=== PATIENT | male | born 1970 ===

== ENCOUNTER 2016-08-13 11:17 | Emergency (ER) | payer OTHER ==
[2016-08-13 11:23] VITALS: BP 141/90; PULSE 76; TEMP 97; O2SAT 98; BMI 33.0
--- NOTE | 2016-08-13 11:43 | ED PDOC ---
HPI: Male Pain Time Seen by Provider: 08/13/16 11:35 Additional Complaint(s): Patient is complaining of a 2 week history of L scrotal pain that is worse when he walks. He reports normal bowel and bladder habits. He denies dysuria. He denies scrotal swelling. He denies penile discharge. He denies abdominal pain or radiation of the pain. Past Medical History Vital Signs: Last Vital Signs Temp 97 F L 08/13/16 11:23 Pulse 76 08/13/16 11:23 Resp BP 141/90 08/13/16 11:23 Pulse Ox 98 08/13/16 11:23 - Medical History PMH: Asthma, Bronchitis, Fractures (broken left finger), HTN - Family History Family History: States: Unknown Family Hx - Immunization History Hx Tetanus Toxoid Vaccination: No Hx Influenza Vaccination: Yes Hx Pneumococcal Vaccination: No - Home Medications Home Medications: Ambulatory Orders Medication Instructions Recorded Montelukast [Singulair] 10 mg PO DAILY 12/03/15 Losartan [Cozaar] 50 mg PO DAILY 02/14/16 Cholecalciferol [Vitamin D 1000 IU] 1,000 iu PO DAILY #30 tab 04/18/16 Lovastatin 10 mg PO DAILY 05/12/16 Clotrimazole 1% Cream [Lotrimin 1%] 1 mg TP TID #1 tube 07/23/16 Losartan [Cozaar] 1 tab PO DAILY #30 tab 07/23/16 Lovastatin 10 mg PO DAILY #30 tab 07/23/16 Montelukast Sodium [Singulair] 10 mg PO DAILY #30 tablet 07/23/16 - Allergies Allergies/Adverse Reactions: Allergies Allergy/AdvReac Type Severity Reaction Status Date / Time almond Allergy SWELLING Verified 07/23/16 11:22 aspirin AdvReac Severe Verified 07/23/16 11:22 ibuprofen AdvReac Severe Verified 07/23/16 11:22 seafood Allergy SWELLING Uncoded 04/18/16 20:51 Review of Systems Constitutional: Negative for: Fever, Chills Cardiovascular: Negative for: Chest Pain, Palpitations Respiratory: Negative for: Cough, Shortness of Breath, SOB with Exertion Gastrointestinal: Negative for: Nausea, Vomiting, Abdominal Pain, Diarrhea, Constipation Genitourinary Male: Positive for: Scrotal Pain. Negative for: Dysuria, Penile Discharge, Rash Musculoskeletal: Negative for: Neck Pain, Shoulder Pain, Back Pain Physical Exam - Physical Exam Gastrointestinal/Abdominal: Positive for: Soft. Negative for: Tenderness, Mass , Distended Male Genital Exam: Positive for: other (non circumsized penis with no discharge , no scrotal tenderness, no hernia palpated. (chaperoned by odilon redd)). Negative for: hernia mass, inguinal tenderness, scrotum tenderness (R), scrotum tenderness (L) Back: Positive for: Normal Inspection. Negative for: L CVA Tenderness, R CVA Tenderness - ECG O2 Sat by Pulse Oximetry: 98 Medical Decision Making Medical Decision Making: Vilmatent is complaining of scrotal pain. Uti vs hernia vs torsion vs epididmytitis 1:37PM UA shows hematuria but is otherwise normal. Gonorrhea/chlamydia received by lab. P: us Will sign out Mishel Avtar to follow-up ultrasound. Disposition - Clinical Impression Clinical Impression: Hematuria, Testicular/scrotal pain - Disposition Disposition Time: 15:00 Condition: FAIR
[2016-08-13 12:39] LABS: RBC URINE 1 /hpf (0-3); URINE BACTERIA RARE (<OCC); URINE BILIRUBIN NEGATIVE (NEGATIVE); URINE BLOOD NEGATIVE (NEGATIVE); URINE COLOR YELLOW (YELLOW); URINE GLUCOSE (UA) NEG (Normal); URINE KETONE NEGATIVE (NEGATIVE); URINE LEUKOCYTE ESTERASE NEG Leu/uL (Negative); URINE PROTEIN NEGATIVE (NEGATIVE); URINE UROBILINOGEN 0.2-1.0 mg/dL (0.2-1.0); WBC URINE 1 /hpf (0-5)
--- NOTE | 2016-08-13 14:55 | US ---
HISTORY: L testicular pain TECHNIQUE: Realtime sonography through the scrotum with color and doppler flow. COMPARISON: None Available. FINDINGS: RIGHT TESTICLE: Measures 5 x 2.9 x 2.1 cm. Normal echotexture and flow. RIGHT EPIDIDYMIS: Epididymal head measures 0.9 x 0.8 x 0.6 cm. Grossly unremarkable appearance with normal flow. LEFT TESTICLE: Measures 5 x 3 x 1.9 cm. Normal echotexture and flow. LEFT EPIDIDYMIS: Epididymal head measures 0.9 x 0.8 x 0.6 cm. Grossly unremarkable appearance with normal flow. HYDROCELE: Small size left-sided hydrocele is noted. VARICOCELE: None. OTHER FINDINGS: None. IMPRESSION: Small size left-sided hydrocele. No evidence of testicular torsion.
--- NOTE | 2016-08-13 15:04 | ED PDOC ---
- ECG O2 Sat by Pulse Oximetry: 98 Medical Decision Making Medical Decision Making: Time: 1500 Patient signed out by Dr. Hightower pending ultrasound Time: 1515 U/S report reviewed HISTORY: L testicular pain TECHNIQUE: Realtime sonography through the scrotum with color and doppler flow. COMPARISON: None Available. FINDINGS: RIGHT TESTICLE: Measures 5 x 2.9 x 2.1 cm. Normal echotexture and flow. RIGHT EPIDIDYMIS: Epididymal head measures 0.9 x 0.8 x 0.6 cm. Grossly unremarkable appearance with normal flow. LEFT TESTICLE: Measures 5 x 3 x 1.9 cm. Normal echotexture and flow. LEFT EPIDIDYMIS: Epididymal head measures 0.9 x 0.8 x 0.6 cm. Grossly unremarkable appearance with normal flow. HYDROCELE: Small size left-sided hydrocele is noted. VARICOCELE: None. OTHER FINDINGS: None. IMPRESSION: Small size left-sided hydrocele. No evidence of testicular torsion. Scribe Attestation: Documented by Nevin aCrson acting as a scribe for Mishel Fraire MD MD Scribe Attestation: All medical record entries made by the Scribe were at my direction and personally dictated by me. I have reviewed the chart and agree that the record accurately reflects my personal performance of the history, physical exam, medical decision making, and the department course for this patient. I have also personally directed, reviewed, and agree with the discharge instructions and disposition. Disposition Counseled Patient/Family Regarding: Studies Performed, Diagnosis, Need For Followup - Clinical Impression Clinical Impression: Hematuria, Testicular/scrotal pain - POA Present On Arrival: None - Disposition Referrals: Galen Daniel Jr., MD [Staff Provider] - (CALL OFFICE TO SCHEDULE FOLLOW UP APPOINTMENT) [facility] [Outside] [facility] [Outside] Disposition: Routine/Home Disposition Time: 15:31 Condition: GOOD Instructions: Hydrocele (ED) Print Language: BELIZEAN
== END 2016-08-13 15:40 | disposition home or self-care (01) ==
LOC: H.ER 11:17
DX: N50.82 Scrotal pain (principal); N43.3 Hydrocele, unspecified; R31.9 Hematuria, unspecified; I10 Essential (primary) hypertension; J45.909 Unspecified asthma, uncomplicated

== ENCOUNTER 2016-09-06 12:37 | Emergency (ER) | payer OTHER ==
[2016-09-06 12:37] VITALS: BMI 33.0
[2016-09-06 12:46] VITALS: RESP 18
[2016-09-06 12:58] VITALS: O2SAT 96
[2016-09-06] MEDS ORDERED: Albuterol-Ipratrop 3 mg / 0.5 (3 ml) UD INH STA ×2 (13:19→13:22)
[2016-09-06] MEDS ORDERED: Albuterol-Ipratrop 3 mg / 0.5 (3 ml) UD ONE (13:22)
--- NOTE | 2016-09-06 13:39 | ED PDOC ---
HPI: SOB/CHF/COPD Time Seen by Provider: 09/06/16 12:51 Chief Complaint (Nursing): Respiratory Distress Chief Complaint (Provider): cough History Per: Patient History/Exam Limitations: no limitations Onset/Duration Of Symptoms: Hrs Current Symptoms Are (Timing): Still Present Current Respiratory Medications: Albuterol, Other (singular) Severity: Mild Additional Complaint(s): Patient is a 46 year old male presenting to the ED complaining of cough since this morning. Cough is associated with congestion, wheezing, and difficulty breathing. Patient used a nebulizer treatment this morning with partial relief. Patient denies fever or chest pain. PMD: [facility] Past Medical History Reviewed: Historical Data, Nursing Documentation, Vital Signs Vital Signs: Last Vital Signs Temp 98.2 F 09/06/16 12:44 Pulse 99 H 09/06/16 14:20 Resp 18 09/06/16 12:51 BP 135/89 09/06/16 12:44 Pulse Ox 96 09/06/16 14:20 - Medical History PMH: Asthma, Bronchitis, Fractures (broken left finger), HTN, Hyperlipidemia - Family History Family History: States: No Known Family Hx - Immunization History Hx Tetanus Toxoid Vaccination: No Hx Influenza Vaccination: Yes Hx Pneumococcal Vaccination: No - Home Medications Home Medications: Ambulatory Orders Medication Instructions Recorded Montelukast [Singulair] 10 mg PO DAILY 12/03/15 Losartan [Cozaar] 50 mg PO DAILY 02/14/16 Cholecalciferol [Vitamin D 1000 IU] 1,000 iu PO DAILY #30 tab 04/18/16 Lovastatin 10 mg PO DAILY 05/12/16 Clotrimazole 1% Cream [Lotrimin 1%] 1 mg TP TID #1 tube 07/23/16 Losartan [Cozaar] 1 tab PO DAILY #30 tab 07/23/16 Lovastatin 10 mg PO DAILY #30 tab 07/23/16 Montelukast Sodium [Singulair] 10 mg PO DAILY #30 tablet 07/23/16 Albuterol HFA [Ventolin HFA 90 2 puff IH [id number] #1 inh 09/06/16 mcg/actuation (8 g)] Fluticasone/Salmeterol [Advair 1 each IH BID #1 blst.w.dev 09/06/16 250-50 Diskus] predniSONE [predniSONE Tab] 60 mg PO DAILY 4 Days 09/06/16 - Allergies Allergies/Adverse Reactions: Allergies Allergy/AdvReac Type Severity Reaction Status Date / Time almond Allergy SWELLING Verified 09/06/16 12:44 aspirin AdvReac Severe RASH Verified 09/06/16 12:44 ibuprofen AdvReac Severe RASH Verified 09/06/16 12:44 seafood Allergy SWELLING Uncoded 04/18/16 20:51 Review of Systems ROS Statement: Except As Marked, All Systems Reviewed And Found Negative Constitutional: Negative for: Fever ENT: Positive for: Nose Congestion Cardiovascular: Negative for: Chest Pain Respiratory: Positive for: Cough, Wheezing Physical Exam - Reviewed Nursing Documentation Reviewed: Yes Vital Signs Reviewed: Yes - Physical Exam Appears: Positive for: Well, Non-toxic, No Acute Distress Head Exam: Positive for: ATRAUMATIC, NORMAL INSPECTION, NORMOCEPHALIC Skin: Positive for: Normal Color, Warm, DRY Eye Exam: Positive for: EOMI, Normal appearance, PERRL Neck: Positive for: Normal, Painless ROM Cardiovascular/Chest: Positive for: Regular Rate, Rhythm. Negative for: Gallop , Murmur Respiratory: Positive for: Wheezing (diffuse bilaterally). Negative for: Respiratory Distress Extremity: Positive for: Normal ROM Neurologic/Psych: Positive for: Alert, Oriented - ECG ECG: Positive for: Interpreted By Me, Viewed By Me ECG Rhythm: Positive for: Normal QRS, Normal ST Segment, Sinus Rhythm. Negative for: ST/T Changes Rate: 99 O2 Sat by Pulse Oximetry: 96 (RA) Pulse Ox Interpretation: Normal Nebulizer Treatments/Peak Flow - Duonebs Number of Bronchodilator Doses given?: 2 - Steroid Treatment Steroid: Oral - Clinical Response Clinical Response: Improved Medical Decision Making Medical Decision Making: Time: 12:55 Impression: asthma exacerbation Plan: EKG Albuterol 3 ml INH Prednisone 60 mg PO Peak flow pre/post Tx Scribe Attestation Documented by Satish Beatty acting as a scribe for Alec Jaramillo MD Provider Attestation: All medical record entries made by the Scribe were at my direction and personally dictated by me. I have reviewed the chart and agree that the record accurately reflects my personal performance of the history, physical exam, medical decision making, and the department course for this patient. I have also personally directed, reviewed, and agree with the discharge instructions and disposition. Disposition - Clinical Impression Clinical Impression: Asthma exacerbation - Patient ED Disposition Is Patient to be Admitted: No Doctor Will See Patient In The: Office Counseled Patient/Family Regarding: Studies Performed, Diagnosis, Need For Followup - Disposition Referrals: [facility] [Outside] Disposition: Routine/Home Disposition Time: 16:00 Condition: GOOD Additional Instructions: Take medications as instructed. Return for worsening. Follow up with your PCP in 2-3 days. Prescriptions: Albuterol HFA [Ventolin HFA 90 mcg/actuation (8 g)] 2 puff IH [id number] #1 inh Fluticasone/Salmeterol [Advair 250-50 Diskus] 1 each IH BID #1 blst.w.dev predniSONE [predniSONE Tab] 60 mg PO DAILY 4 Days Instructions: Asthma (ED)
[2016-09-06 16:17] VITALS: BP 131/78; PULSE 82; TEMP 98
--- NOTE | 2016-09-07 07:39 | CARD ---
APPROVED REPORT EKG Measurement Heart [id number] NM [id number] <Conclusion> Normal sinus rhythm Normal ECG
== END 2016-09-06 16:17 | disposition home or self-care (01) ==
LOC: H.ER 12:37
DX: J45.901 Unspecified asthma with (acute) exacerbation (principal); E78.5 Hyperlipidemia, unspecified; I10 Essential (primary) hypertension